=== PATIENT | female | born 1955 | race Caucasian/White ===

== ENCOUNTER 2016-11-10 10:28 | Inpatient (IN) ==
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
--- NOTE | 2016-11-10 11:13 | EKG Report ---
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
[2016-11-10 11:39] LABS: Basophils % 0.4 % (0.0-0.8); Eosinophils # 0.3 10*3/uL (0.0-0.87); Eosinophils % 4.6 % (0.00-10.9); Hematocrit 36.7 VOL% (35.7-47.0); Hemoglobin 12.3 GM/DL (12.0-16.0); Immature Granulocytes % 0.6 %; Immature Granulocytes Absolute 0.03 #; Lymphocytes # 1.1 10*3/uL (1.4-4.0); Lymphocytes % 21.2 % (21.3-54.2); Mean Corpuscular HGB Conc 33.5 GM/DL (32-36); Mean Corpuscular Hemoglobin 30 PG (27-34); Mean Corpuscular Volume 90.4 FL (87-102); Mean Platelet Volume 10.2 FL (9.6-12.0); Monocytes # 0.3 10*3/uL (0.11-0.8); Monocytes % 5.9 % (1.7-12.7); Neutrophils # 3.6 10*3/uL (1.4-7.4); Neutrophils % 67.3 % (38.7-73.9); Platelet Count 187 T/CUMM (130-400); Red Blood Count 4.06 MC/CUMM (3.8-5.5); Red Cell Distribution Width 12.1 % (9.3-17.3); White Blood Count 5.4 T/CUMM (4-12)
[2016-11-10 11:44] LABS: Apearance,Urine CLEAR (Clear); Bilirubin,Urine Negative (Negative); Blood, Urine Negative (Negative); Glucose,Urine (UA) Negative (Negative); Ketones,Urine Negative (Negative); Nitrite,Urine Negative (Negative); Protein,Urine Negative; RBC,Urine 1 /HPF (0-4); Urine Color Yellow (Yellow); Urine Specific Gravity 1.038 (1.001-1.035); Urine Urobilinogen < 2.0 EU/DL (0.2-1.0)
[2016-11-10 11:51] LABS: Barbiturates Screen,Urine Negative (Negative); Benzodiazepines Screen,Urine Negative (Negative); Cannabinoid Screen,Urine Negative (Negative); Opiate Screen,Urine Positive (Negative); Phencyclidine Screen,Urine Negative (Negative)
[2016-11-10 11:55] LABS: PT Patient Result 10.6 SECS; Partial Thromboplastin Time 27.6 SECS (0-40)
[2016-11-10 12:09] LABS: Lactic Acid 0.9 MMOL/L (0.4-2.0)
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
[2016-11-10 12:35] LABS: Troponin I Only < 0.015 NG/ML (0.00-0.045)
--- NOTE | 2016-11-10 12:48 | XRay Report ---
XR foot 3V LT Indication: Pain Comparison: None available Findings: No evidence of fracture seen. The alignment of the joints appears normal. Mild midfoot degenerative change is present. No soft tissue abnormality is seen. Impression: Mild midfoot osteoarthrosis. PROCEDURE INTERPRETED AT [facility] DEPARTMENT OF RADIOLOGY Final Report Signed by: Dr. Ernesto Brady
[2016-11-10] MEDS ORDERED: ACETAMINOPHEN 325 MG TABLET PO PRN (12:52)
[2016-11-10] MEDS: MORPHINE 2 MG/1 ML SYRINGE IV PRN ×2 (12:58→18:02)
[2016-11-10 13:45] LABS: Alanine Aminotransferase 28 U/L (13-56); Albumin 4.3 G/DL (3.4-5.0); Alkaline Phosphatase 91 U/L (45-117); Amylase 34 U/L (25-115); Aspartate Amino Transferase 23 U/L (0-37); Blood Urea Nitrogen 15 MG/DL (7-18); Glucose 99 MG/DL (74-106); Osmolality,Calculated 273.8 MOS/KG (273-304); Potassium 3.8 MMOL/L (3.5-5.1); Sodium 137 MMOL/L (136-145); Total Protein 7.3 G/DL (6.4-8.3)
[2016-11-10] MEDS: ENOXAPARIN 40 MG/0.4 ML SYRINGE SUBCUT SCH (20:13)
[2016-11-11] MEDS: MORPHINE 2 MG/1 ML SYRINGE IV PRN ×3 (00:56→09:28)
[2016-11-11] MEDS: ONDANSETRON 4 MG/2 ML VIAL IV PRN ×2 (05:45→12:59)
[2016-11-11] MEDS: PANTOPRAZOLE 40 MG TABLET PO SCH (08:46)
[2016-11-11 09:15] LABS: Basophils % 0.5 % (0.0-0.8); Eosinophils # 0.1 10*3/uL (0.0-0.87); Eosinophils % 2.4 % (0.00-10.9); Hematocrit 37.7 VOL% (35.7-47.0); Hemoglobin 12.7 GM/DL (12.0-16.0); Immature Granulocytes % 0.3 %; Immature Granulocytes Absolute 0.02 #; Lymphocytes # 1.4 10*3/uL (1.4-4.0); Lymphocytes % 24.3 % (21.3-54.2); Mean Corpuscular HGB Conc 33.7 GM/DL (32-36); Mean Corpuscular Hemoglobin 31 PG (27-34); Mean Corpuscular Volume 91.1 FL (87-102); Mean Platelet Volume 9.8 FL (9.6-12.0); Monocytes # 0.4 10*3/uL (0.11-0.8); Monocytes % 7.2 % (1.7-12.7); Neutrophils # 3.8 10*3/uL (1.4-7.4); Neutrophils % 65.3 % (38.7-73.9); Platelet Count 223 T/CUMM (130-400); Red Blood Count 4.14 MC/CUMM (3.8-5.5); Red Cell Distribution Width 12.3 % (9.3-17.3); White Blood Count 5.8 T/CUMM (4-12)
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
[2016-11-11] MEDS: KETOROLAC 15 MG/1 ML VIAL IV SCH ×3 (11:05→21:47)
[2016-11-11] MEDS: ENOXAPARIN 40 MG/0.4 ML SYRINGE SUBCUT SCH (21:47)
[2016-11-12] MEDS: KETOROLAC 15 MG/1 ML VIAL IV SCH ×2 (04:25→10:27)
[2016-11-12 07:42] VITALS: BP 138/74
[2016-11-12] MEDS: PANTOPRAZOLE 40 MG TABLET PO SCH (08:39)
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
== END 2016-11-12 11:16 | disposition home or self-care (01) | DRG 184 ==
LOC: EDUNIT# → N.CVR 10:28 → N.ED 10:28 → OBSVTOIN 11:55 → INTOOBSV 11:55 → N.3E 12:45
PROVIDERS: ADMIT Surgery; ATTEND Surgery

== ENCOUNTER 2016-12-02 15:05 | Observation (INO) ==
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
[2016-12-02] MEDS ORDERED: HYDROmorphone 2 MG/1 ML VIAL IV PRN (17:45)
--- NOTE | 2016-12-02 18:47 | XRay Report ---
2 view chest Indication: Sternal pain Comparison: November 10, 2016 Findings: Cardiomediastinal contours are stable with plaquing along the arch. Chronic coarsening of the interstitial pattern. No acute osseous abnormalities. Visualized upper abdomen demonstrates no acute pathology. Impression: No acute cardiopulmonary findings PROCEDURE INTERPRETED AT [facility] DEPARTMENT OF RADIOLOGY Final Report Signed by: German Mckeon MD
[2016-12-02 19:33] LABS: Basophils % 0.7 % (0.0-0.8); Eosinophils # 0.3 10*3/uL (0.0-0.87); Eosinophils % 6.3 % (0.00-10.9); Hematocrit 34.1 VOL% (35.7-47.0); Hemoglobin 11.7 GM/DL (12.0-16.0); Immature Granulocytes % 0.2 %; Immature Granulocytes Absolute 0.01 #; Lymphocytes # 1.8 10*3/uL (1.4-4.0); Lymphocytes % 39.7 % (21.3-54.2); Mean Corpuscular HGB Conc 34.3 GM/DL (32-36); Mean Corpuscular Hemoglobin 30 PG (27-34); Mean Corpuscular Volume 88.1 FL (87-102); Mean Platelet Volume 10.6 FL (9.6-12.0); Monocytes # 0.2 10*3/uL (0.11-0.8); Monocytes % 4.5 % (1.7-12.7); Neutrophils # 2.2 10*3/uL (1.4-7.4); Neutrophils % 48.6 % (38.7-73.9); Platelet Count 227 T/CUMM (130-400); Red Blood Count 3.87 MC/CUMM (3.8-5.5); Red Cell Distribution Width 12.4 % (9.3-17.3); White Blood Count 4.4 T/CUMM (4-12)
[2016-12-02 20:05] LABS: Albumin 4.2 G/DL (3.4-5.0); Bilirubin,Total 0.4 MG/DL (0.2-1.0); Calcium 9.1 MG/DL (8.5-10.1); Osmolality,Calculated 284.1 MOS/KG (273-304); Potassium 3.3 MMOL/L (3.5-5.1); Total Protein 7.4 G/DL (6.4-8.3)
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
[2016-12-03] MEDS ORDERED: ENOXAPARIN 40 MG/0.4 ML SYRINGE SUBCUT SCH (09:30)
[2016-12-03] MEDS ORDERED: LORazepam 1 MG TABLET PO ONE (09:38)
[2016-12-03] MEDS ORDERED: ASPIRIN EC 81 MG TABLET PO SCH (10:00)
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
[2016-12-03] MEDS ORDERED: GABAPENTIN 600 MG TABLET PO SCH (15:00)
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
[2016-12-03 16:58] VITALS: BP 133/73
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
[2016-12-03] MEDS ORDERED: CITALOPRAM 20 MG TABLET PO SCH (19:00)
[2016-12-03] MEDS ORDERED: FLUTICASONE 50 MCG NASAL SPRAY 16 GM BOTTLE BOTH NARES SCH (21:00)
[2016-12-04] MEDS ORDERED: hydroCHLOROthiazide 12.5 MG CAPSULE PO SCH (09:00)
== END 2016-12-03 18:13 | disposition home or self-care (01) ==
LOC: N.3E
PROVIDERS: ADMIT Surgery; ATTEND Surgery